=== PATIENT | male | born 1970 | race Caucasian/White ===

== ENCOUNTER 2020-06-06 17:09 | Emergency (ER) | payer SELFPAY ==
[~2020-06-06] VITALS: Ht 180.3 cm; Wt 68.0 kg
[2020-06-06 17:19] VITALS: BP 148/92
--- NOTE | 2020-06-06 17:48 | Emergency Room Report ---
History of Present Illness General Chief Complaint: Medical Clearance Source: Patient Present Illness HPI 49 YO male presents to the ED for medical clearance for incarceration. Pt. c/o 04/12 in severity Left hand Pain and left foot pain. Pt. reports he fell a week and a half ago and fractured his Left hand. Pt reports being splinted but taking it off himself after 24 hours because he got it wet. He reports he injured his left foot 5 weeks ago but is still having pain and wants it evaluated. Pt. denies open wounds or bleeding. He denies CP, Palpitations, SOB, CLARK, Dizziness, weakness, or loss of gross motor movements. Pt. reports he is right hand dominant. He denies hitting his head or having LOC. pain increased with use such as palpation,or walking. He denies paresthesias. Allergies: Coded Allergies: CEPHALEXIN (Verified Allergy, Unknown, 06/06/20) SULFAMETHOXAZOLE (Verified Allergy, Unknown, 06/06/20) TRIMETHOPRIM (Verified Allergy, Unknown, 06/06/20) COVID-19 Screening Contact w/high risk pt: No Experienced COVID-19 symptoms?: No COVID-19 Testing performed DUCT MAKER: No Patient History Past Medical History: see triage record Past Surgical History: none Pertinent Family History: none Reviewed Nursing Documentation: PMH: Agreed; PSxH: Agreed Nursing Documentation-PMH Past Medical History: No History, Except For Hx Hypertension: Yes Hx Asthma: Yes Review of Systems All Other Systems: negative except mentioned in HPI Physical Exam Vital Signs Date Time Temp Pulse Resp B/P (MAP) Pulse Ox O2 Delivery O2 Flow Rate FiO2 06/06/20 17:13 98.4 79 17 148/92 (110) 99 Room Air Sp02 EP Interpretation: reviewed, normal General Appearance: no apparent distress, alert, GCS 15, non-toxic Head: normocephalic, atraumatic Eyes: bilateral eye normal inspection, bilateral eye PERRL ENT: hearing grossly normal, normal voice Neck: full range of motion Respiratory: chest non-tender, lungs clear, normal breath sounds, no wheezing, speaking full sentences Cardiovascular #1: regular rate, rhythm, normal capillary refill Cardiovascular #2: 2+ radial (R), 2+ radial (L), 2+ dorsalis pedis (R), 2+ dorsalis pedis (L) Gastrointestinal: normal bowel sounds, non tender, soft Musculoskeletal: back normal, normal range of motion, gait/station normal, tender - Dorsum of the left hand and Left wrist, visible deformity. TTP to the dorsum of the midleft foot. no obvious deformity or soft tissue swelling. Neurologic: alert, motor strength/tone normal, oriented x3, sensory intact, responsive, speech normal Psychiatric: judgement/insight normal Skin: no rash, normal color, other - no bruises. no lacerations or abrasions Medical Decision Making PA Attestation Dr. Potter is my supervising Physician whom patient management has been discussed with. Diagnostic Impression: Primary Impression: Fracture of left wrist with malunion Qualified Codes: S62.102P - Fracture of unspecified carpal bone, left wrist, subsequent encounter for fracture with malunion Additional Impressions: Non compliance with medical treatment Foot pain, left Phalanx fracture, foot Qualified Codes: S92.912A - Unspecified fracture of left toe(s), initial encounter for closed fracture ER Course 49 YO male presents to the ED for medical clearance for incarceration. Pt. c/o 04/12 in severity Left hand Pain and left foot pain. Pt. reports he fell a week and a half ago and fractured his Left hand. Pt reports being splinted but taking it off himself after 24 hours because he got it wet. He reports he injured his left foot 5 weeks ago but is still having pain and wants it evaluated. Pt. denies open wounds or bleeding. He denies CP, Palpitations, SOB, CLARK, Dizziness, weakness, or loss of gross motor movements. Pt. reports he is right hand dominant. He denies hitting his head or having LOC. pain increased with use such as palpation,or walking. He denies paresthesias. Ddx considered but are not limited to Fracture, dislocation, contusion, Sprain/Strain/Spasm, Vital signs: are WNL, pt. is afebrile H&PE are most consistent with musculoskeletal injury will perform imaging to r/o fractures/dislocations. ORDERS: - X-rays : Old fracture of the left wrist that did not heal properly secondary to his non-compliance with immobilization. ED INTERVENTIONS: -Left wrist/forearm sugar-tong Splint applied by information technology officer. Pt. remains neurovascularly intact. -Walking boot was placed on patient's left foot. Patient remains neurovascularly intact. Discussed with patient that due to his noncompliance with previously placed immobilization splints, he is having very poor healing of his left wrist fracture and this most likely will require surgery. Discussed with patient that he needs to remain and the splint until he is seen by mobility specialist. d/w pt. that he is responsible for maintaining proper immobilization and care until he sees a specialist. DISCHARGE: At this time pt. is stable for d/c to home. Will provide printed patient care instructions, and any necessary prescriptions. Care plan and follow up instructions have been discussed with the patient prior to discharge. Other X-Ray Diagnostic Results Other X-Ray Diagnostic Results #1: X-Ray ordered: Left hand # of Views/Limited Vs Complete: 3 View Indication: Pain EP Interpretation: Yes MICHAEL Xray: Interpretation reviewed, by supervising MD, and agrees with wes odom. Interpretation: other - Impacted intra-articular distal radial fracture., ulnar styloid fx. Impression: Other - abnormal: malunion of old fracture Electronically Signed by: Anamaria RODRIGUEZ Scribe Text "IMPRESSION: 1. Impacted intra-articular distal radial fracture. 2. Nondisplaced ulnar styloid fracture."-- --- Per official radiology report- Please see report for specific details. Other X-Ray Diagnostic Results #2: X-Ray ordered: Left Foot # of Views/Limited Vs Complete: 3 View Indication: Pain EP Interpretation: Yes MICHAEL Xray: Interpretation reviewed, by supervising MD, and agrees with findings. Interpretation: no dislocation, no soft tissue swelling, no fractures, other - Subacute appearing mildly comminuted fracture of the base of the third Impression: Other - abnormal Electronically Signed by: Anamaria RODRIGUEZ Scribe Text "IMPRESSION: Subacute appearing mildly comminuted fracture of the base of the third proximal phalanx with surrounding callus". --- Per official radiology report- Please see report for specific details. Last Vital Signs Date Time Temp Pulse Resp B/P (MAP) Pulse Ox O2 Delivery O2 Flow Rate FiO2 06/06/20 17:19 98.4 87 17 148/92 99 Room Air Status: improved Disposition: LAW ENFORCEMENT IN [facility] Condition: Stable Scripts Acetaminophen* (TYLENOL EXTRA STRENGTH*) 500 Mg Tablet 500 MG ORAL Q6H, #20 TAB 0 Refills Prov: Anamaria Renteria 06/06/20 Ibuprofen* (MOTRIN*) 600 Mg Tablet 600 MG ORAL THREE TIMES A DAY, #30 TAB Prov: Anamaria Renteria 06/06/20 Referrals: Orthopedic Urgent Care Patient Instructions: Wrist Fracture Additional Instructions: DO NOT REMOVE IMMOBILIZING SPLINTS. YOU HAVE POORLY HEALING FRACTURES WHICH WILL MOST LIKELY REQUIRE SURGICAL TREATMENT. Follow up with an GENERAL ASSISTANT in 3-5 days, even if your symptoms have resolved. --Please review RESOURCE INFO: ORTHOPEDIC URGENT CARE, if you do not already have a primary care provider who can give you an Orthopedic Referral. Return sooner to ED if new symptoms occur, or current symptoms become worse. - Please note that this Emergency Department Report was dictated using [employer] medical transcriptionist technology software, occasionally this can lead to erroneous entry secondary to interpretation by the dictation equipment. Anamaria Renteria Jun 06, 2020 17:48
[2020-06-06] MEDS ORDERED: TYLENOL EXTRA500 MG ORAL (18:19)
[2020-06-06] MEDS ORDERED: IBUPROFEN600 M1 ORAL (18:19)
[2020-06-06] MEDS ORDERED: HYDROcodone/Acetamin 5/325 tab ORAL ONE (18:30)
[2020-06-06 18:35] VITALS: BP 148/92
--- NOTE | 2020-06-06 18:39 | Diagnostic Imaging Report ---
EXAM: XR Left Hand Complete, 3 or More Views CLINICAL HISTORY: PAIN TECHNIQUE: Frontal, lateral and oblique views of the left hand. COMPARISON: No relevant prior studies available. FINDINGS: Bones/joints: Impacted intra-articular distal radial fracture. Nondisplaced ulnar styloid fracture. Moderate degenerative changes at the first CMC joint. No dislocation. Soft tissues: Unremarkable. No radiopaque foreign body. IMPRESSION: 1. Impacted intra-articular distal radial fracture. 2. Nondisplaced ulnar styloid fracture.
--- NOTE | 2020-06-06 18:43 | Diagnostic Imaging Report ---
EXAM: XR Left Foot Complete, 3 or More Views CLINICAL HISTORY: PAIN TECHNIQUE: Frontal, lateral and oblique views of the left foot. COMPARISON: No relevant prior studies available. FINDINGS: Bones/joints: Subacute appearing mildly comminuted fracture of the base of the third phalanx with surrounding callus. Moderate degenerative changes at the Lisfranc joint. No dislocation. Soft tissues: Unremarkable. No radiopaque foreign body. IMPRESSION: Subacute appearing mildly comminuted fracture of the base of the third proximal phalanx with surrounding callus.
== END 2020-06-06 18:35 ==
LOC: EMR 17:32
DX: S92.512A Displaced fracture of proximal phalanx of left lesser toe(s), initial encounter for closed fracture (principal); S52.572A Other intraarticular fracture of lower end of left radius, initial encounter for closed fracture; S52.615A Nondisplaced fracture of left ulna styloid process, initial encounter for closed fracture; Z91.14 Patient's other noncompliance with medication regimen; M25.542 Pain in joints of left hand; Z88.2 Allergy status to sulfonamides; Z88.8 Allergy status to other drugs, medicaments and biological substances; I10 Essential (primary) hypertension; W19.XXXA Unspecified fall, initial encounter; Y92.9 Unspecified place or not applicable
CPT/HCPCS: 29125; 99284